=== PATIENT | female | born 1980 | race Caucasian/White ===

== ENCOUNTER 2021-01-05 08:00 | Outpatient (CLI) | payer OTHER | END 2021-01-05 08:30 | disposition home or self-care (01) | LOC: PPH VACUNA 08:00 | PROVIDERS: ATTEND Emergency Medicine Pediatric Emergency Medicine | DX: Z23 Encounter for immunization (principal) ==

== ENCOUNTER 2022-01-04 13:25 | Outpatient (CLI) | payer OTHER | END 2022-01-04 13:30 | disposition home or self-care (01) | LOC: PPH VACUNA 13:25 | PROVIDERS: ATTEND Emergency Medicine Pediatric Emergency Medicine | DX: Z23 Encounter for immunization (principal) ==